=== PATIENT | male | born 1950 | race Caucasian/White ===

== ENCOUNTER 2020-12-21 10:55 | Outpatient (CLI) | payer MEDICARE, MEDICAID, SELFPAY | END 2020-12-21 10:56 | disposition home or self-care (01) | LOC: ANHAUDIO 10:56 | PROVIDERS: PCP Internal Medicine; Referring Provider Otolaryngology; Visit Provider Internal Medicine | DX: H90.3 Sensorineural hearing loss, bilateral (principal); J30.2 Other seasonal allergic rhinitis; M35.3 Polymyalgia rheumatica; M54.9 Dorsalgia, unspecified; F41.9 Anxiety disorder, unspecified; F32.9 Major depressive disorder, single episode, unspecified; G43.909 Migraine, unspecified, not intractable, without status migrainosus; Z13.220 Encounter for screening for lipoid disorders; N40.0 Benign prostatic hyperplasia without lower urinary tract symptoms; I10 Essential (primary) hypertension; L21.8 Other seborrheic dermatitis; R60.0 Localized edema; G47.00 Insomnia, unspecified; M19.012 Primary osteoarthritis, left shoulder | CPT/HCPCS: 92557; 92567 ==

== ENCOUNTER 2021-01-16 14:30 | Outpatient (RCR) | payer MEDICAID, SELFPAY | END 2021-01-16 23:59 | disposition home or self-care (01) | LOC: ANHAUDIO 14:30 | PROVIDERS: PCP Internal Medicine; Visit Provider Internal Medicine | DX: Z46.1 Encounter for fitting and adjustment of hearing aid (principal) | CPT/HCPCS: V5160; V5261 ==